=== PATIENT | female | born 1960 | race African-American/Black ===

== ENCOUNTER 2017-04-27 08:29 | Emergency (ER) | payer OTHER ==
[2017-04-27 09:04] LABS: #Eosinphils 0.1 thou/uL (0.0-0.7); #Lymphocytes 2.2 thou/uL (1.20-3.40); #Monocytes 0.6 thou/uL (0.11-0.59); #Neutrophils 2.2 thou/uL (1.40-6.50); %Basophils 0.2 % (0.0-1.0); %Eosinophils 2.1 % (0.0-10.0); %Lymphocytes 43.2 % (21.0-51.0); %Monocytes 11.1 % (0.0-10.0); %Neutrophils 43.5 % (42.0-75.0); Hemoglobin 15.1 g/dL (12.0-16.0); Mean Corpuscular HGB CONC 32.7 g/dL (32.0-36.0); Mean Corpuscular Volume 94.8 fl (81.0-99.0); Mean Platelet Volume 7.8 fL (7.4-10.4); Platelet Count 262 thou/uL (130-400); RBC Distribution Width 12.4 % (11.5-14.5); Red Blood Cell (RBC) Count 4.88 mill/uL (4.20-5.40)
[2017-04-27] MEDS ORDERED: Ketorolac Tromethamine 30 MG/ML VIAL ONE (09:15)
[2017-04-27 09:29] LABS: CKMB 2.7 ng/mL (0-6.6); Troponin I Less than 0.010 ng/mL (< 0.028)
--- NOTE | 2017-04-27 09:50 | RAD ---
PORTABLE CHEST: Date: 04/27/17 PROVIDED CLINICAL HISTORY: Chest pain. FINDINGS: Comparison with 11/08/16. Evaluation is limited by patient body habitus. Cardiac silhouette appears enlarged, which may be at least partially on the basis of portable techniq ue. No focal consolidation, pleural fluid, or pneumothorax apparent. IMPRESSION: No evidence for an acute cardiopulmonary process. If there is persistent clinical concern, follow-up PA and lateral views of the chest are recommended. POS: [facility]
[2017-04-27 10:08] LABS: Albumin 3.6 g/dL (3.5-5.0)
[2017-04-27 10:09] LABS: Chloride 110 mmol/L (98-107); Potassium 4.2 mmol/L (3.5-5.1); Sodium 139 mmol/L (136-145)
[2017-04-27 10:10] LABS: Calcium 9.1 mg/dL (7.8-10.44)
[2017-04-27 10:11] LABS: Glucose 127 mg/dL (70-105); Protein, Total 6.6 g/dL (6.0-8.3)
[2017-04-27 10:12] LABS: Anion Gap 10 mmol/L (10-20); Bilirubin, Total 0.3 mg/dL (0.2-1.2); Carbon Dioxide 23 mmol/L (22-29)
[2017-04-27 10:13] LABS: Alkaline Phosphatase 80 U/L (40-150)
[2017-04-27 10:14] LABS: Calc. Creatinine Clearance 0 mL/min (70-130); Estimated GFR-MDRD 86
[2017-04-27 10:15] LABS: BUN (Urea Nitrogen) 8 mg/dL (9.8-20.1)
[2017-04-27 10:16] LABS: AST (SGOT) 15 U/L (5-34)
[2017-04-27 10:17] LABS: ALT (SGPT) 20 U/L (8-55); CK (CPK) 134 U/L (29-168)
[2017-04-27] MEDS ORDERED: Acetaminophen 500 MG TAB ONE (12:22)
[2017-04-27 12:38] LABS: Troponin I Less than 0.010 ng/mL (< 0.028)
--- NOTE | 2017-04-29 17:35 | EKG ---
Test Reason : CP Blood Pressure : / mmHG Vent. Rate : 076 BPM Atrial Rate : 076 BPM P-R Int : 144 ms QRS Dur : 068 ms QT Int : 376 ms P-R-T Axes : 042 060 030 degrees QTc Int : 423 ms Normal sinus rhythm Normal ECG Confirmed by KOBE STREET MD ([id number]), cable placer CARRIE TRAORE ([id number]) on 04/29/2017 5:33:50 PM Referred By: Confirmed By:KOBE STREET MD
== END 2017-04-27 13:16 | disposition home or self-care (01) ==
LOC: ERS 08:29
DX: R07.89 Other chest pain (principal); G43.909 Migraine, unspecified, not intractable, without status migrainosus; Z79.899 Other long term (current) drug therapy
CPT/HCPCS: 36415; 71045; 80053; 82550; 82553; 83880; 84484; 85025; 93005; 96374; J1885

== ENCOUNTER 2017-05-27 23:14 | Emergency (ER) | payer OTHER ==
[2017-05-27] MEDS ORDERED: Ketorolac Tromethamine 30 MG/ML VIAL ONE (23:49)
[2017-05-28] LABS: #Eosinphils 0.2 thou/uL (0.0-0.7); #Lymphocytes 2.6 thou/uL (1.20-3.40); #Monocytes 0.7 thou/uL (0.11-0.59); #Neutrophils 3.6 thou/uL (1.40-6.50); %Basophils 0.2 % (0.0-1.0); %Lymphocytes 36.9 % (21.0-51.0); %Monocytes 9.5 % (0.0-10.0); %Neutrophils 50.5 % (42.0-75.0); Hemoglobin 14.4 g/dL (12.0-16.0); Mean Corpuscular HGB CONC 33.6 g/dL (32.0-36.0); Mean Corpuscular Hemoglobin 31.4 pg (27.0-31.0); Mean Corpuscular Volume 93.3 fl (81.0-99.0); Mean Platelet Volume 7.1 fL (7.4-10.4); Platelet Count 253 thou/uL (130-400); RBC Distribution Width 12.1 % (11.5-14.5); Red Blood Cell (RBC) Count 4.59 mill/uL (4.20-5.40); White Blood Cell (WBC) Count 7.1 thou/uL (4.8-10.8)
[2017-05-28 00:02] LABS: Bilirubin Negative (Negative); Blood, Urine Small (Negative); Clarity CLEAR (Clear); Glucose, Urine (Dipstick) Negative (Negative); Leukocyte Negative (Negative); Nitrite Negative (Negative); Protein, Urine (Dipstick) Negative (Neg-Trace); Specific Gravity, Urine 1.011 (1.002-1.036); pH, Urine 5.5 (5.0-9.0)
[2017-05-28 00:04] LABS: Bacteria/HPF None Seen HPF (None Seen); Hyaline Casts/LPF 0-3 HYALINE CAST LPF (0-3 Hyaline); Pathc Cast-AUWi Flag 0.43 (0-2.49); RBC/HPF 0-3 HPF (0-3); Squamous Epithelial 0-3 HPF (0-3); WBC/HPF 0-3 HPF (0-3)
[2017-05-28 00:28] LABS: ALT (SGPT) 15 U/L (8-55); AST (SGOT) 17 U/L (5-34); Albumin 3.9 g/dL (3.5-5.0); Alkaline Phosphatase 98 U/L (40-150); Anion Gap 14 mmol/L (10-20); BUN (Urea Nitrogen) 9 mg/dL (9.8-20.1); Bilirubin, Total 0.2 mg/dL (0.2-1.2); Calc. Creatinine Clearance 0 mL/min (70-130); Calcium 9.4 mg/dL (7.8-10.44); Carbon Dioxide 24 mmol/L (22-29); Chloride 107 mmol/L (98-107); Estimated GFR-MDRD 69; Globulin 3.5 g/dL (2.4-3.5); Glucose 132 mg/dL (70-105); Lipase 12 U/L (8-78); Potassium 3.6 mmol/L (3.5-5.1); Protein, Total 7.4 g/dL (6.0-8.3); Sodium 141 mmol/L (136-145)
--- NOTE | 2017-05-28 11:19 | CT ---
PRELIMINARY REPORT/[facility]/EMERGENCY AFTER HOURS PROCEDURE: EXAM: CT Abdomen and Pelvis Without Intravenous Contrast EXAM DATE/TIME: Exam ordered 05/28/2017 12:03 AM CLINICAL HISTORY: 57 years old, female; Pain; Abdominal pain; Flank; Left; Patient HX: L flank pain x 1 wk TECHNIQUE: Axial computed tomography images of the abdomen and pelvis without intravenous contrast. Coronal reformatted images were created and reviewed. COMPARISON: No relevant prior studies available. FINDINGS: Lung bases: Unremarkable. No mass. No consolidation. ABDOMEN: Liver: Unremarkable. Gallbladder and bile ducts: Unremarkable. No calcified stones. No ductal dilation. Pancreas: Unremarkable. No ductal dilation. Spleen: Unremarkable. No splenomegaly. Adrenals: Unremarkable. No mass. Kidneys and ureters: Unremarkable. No obstructing stones. No hydronephrosis. Stomach and bowel: Unremarkable. No obstruction. No mucosal thickening. Appendix: Normal appendix. PELVIS: Bladder: Unremarkable. No stones. Reproductive: Prior hysterectomy. ABDOMEN and PELVIS: Intraperitoneal space: Unremarkable. No free air. No significant fluid collection. Bones/joints: No acute fracture. No dislocation. Soft tissues: Unremarkable. Vasculature: Unremarkable. No abdominal aortic aneurysm. Lymph nodes: Unremarkable. No enlarged lymph nodes. IMPRESSION: No acute findings. Thank you for allowing us to participate in the care of your patient. Dictated and Authenticated by: Remberto Decker MD 05/28/2017 12:17 AM Central Time ([place] & [place]) FINAL REPORT CT ABDOMEN AND PELVIS NONCONTRAST PERFORMED ON AN EMERGENCY BASIS: Date: 05/28/17 Time: 0004 hours HISTORY: Left flank pain. FINDINGS: Findings agree with the preliminary report by Theodora. There is no CT evidence of urinary tract obstruct ion or calcification. Lack of contrast limits evaluation for other abnormalities. POS: [facility]
== END 2017-05-28 02:20 | disposition home or self-care (01) ==
LOC: ERS 23:14
DX: Z79.899 Other long term (current) drug therapy; M62.830 Muscle spasm of back; G43.909 Migraine, unspecified, not intractable, without status migrainosus
CPT/HCPCS: 74176; 80053; 81003; 81015; 83690; 85025; 96374; J1885

== ENCOUNTER 2017-06-23 10:50 | Day surgery (SDC) | payer OTHER ==
[2017-06-22 12:35] VITALS: BMI 27.4
[2017-06-23 11:33] LABS: #Eosinphils 0.1 thou/uL (0.0-0.7); #Lymphocytes 2.6 thou/uL (1.20-3.40); #Monocytes 0.5 thou/uL (0.11-0.59); #Neutrophils 2.4 thou/uL (1.40-6.50); %Basophils 0.3 % (0.0-1.0); %Eosinophils 1.9 % (0.0-10.0); %Lymphocytes 45.6 % (21.0-51.0); %Monocytes 9.2 % (0.0-10.0); Hemoglobin 15.2 g/dL (12.0-16.0); Mean Corpuscular HGB CONC 33.3 g/dL (32.0-36.0); Mean Corpuscular Volume 92.9 fl (81.0-99.0); Mean Platelet Volume 7.3 fL (7.4-10.4); Platelet Count 258 thou/uL (130-400); Red Blood Cell (RBC) Count 4.92 mill/uL (4.20-5.40); White Blood Cell (WBC) Count 5.6 thou/uL (4.8-10.8)
[2017-06-23 11:36] LABS: INR-International Normal Ratio 0.9; PTT 29.3 SEC (22.9-36.1); Prothrombin Time 12.6 SEC (12.0-14.7)
[2017-06-23] MEDS ORDERED: Sodium Chloride 0.9% 10 ML ONE (11:37)
[2017-06-23] MEDS ORDERED: Thrombin 5000 UNITS/5 ML VIAL ONE (11:37)
[2017-06-23 11:46] LABS: Anion Gap 11 mmol/L (10-20); BUN (Urea Nitrogen) 10 mg/dL (9.8-20.1); Calc. Creatinine Clearance 79 mL/min (70-130); Calcium 9.4 mg/dL (7.8-10.44); Carbon Dioxide 24 mmol/L (22-29); Chloride 110 mmol/L (98-107); Estimated GFR-MDRD 77; Glucose 96 mg/dL (70-105); Sodium 141 mmol/L (136-145)
[2017-06-23] MEDS ORDERED: Fentanyl 250 MCG/5 ML VIAL ONE (11:47)
[2017-06-23] MEDS ORDERED: CEFAZOLIN/Water 2 GM/20 ML SYRINGE ONE (11:51)
[2017-06-23] MEDS ORDERED: Midazolam HCl 2 mg/2 ml Vial ONE (11:58)
[2017-06-23] MEDS ORDERED: HYDROmorphone 2 MG/ML VIAL SLOW IVP PRN (14:35)
[2017-06-23] MEDS ORDERED: Ondansetron HCl/PF 4 MG/2 ML Vial IVP PRN (14:35)
[2017-06-23] MEDS ORDERED: Promethazine HCl 25 MG/ML VIAL IM PRN ×2 (14:35→14:38)
[2017-06-23] MEDS ORDERED: Promethazine HCl 25 MG/ML VIAL SLOW IVP PRN (14:35)
[2017-06-23] MEDS ORDERED: Acetaminophen 325 MG TAB PO PRN (14:38)
[2017-06-23] MEDS ORDERED: Fleet Enema 133 ML BOT PR PRN (14:38)
[2017-06-23] MEDS ORDERED: tiZANidine HCl 4 MG TAB PO PRN (14:38)
[2017-06-23] MEDS ORDERED: Morphine 4 MG/ML VIAL SLOW IVP PRN (14:38)
[2017-06-23] MEDS ORDERED: traMADol HCl 50 MG TAB PO PRN (14:38)
[2017-06-23] MEDS ORDERED: HYDROcodone/Acetaminophen 7.5/325 mg Tablet PO PRN (14:38)
[2017-06-23] MEDS ORDERED: Milk Of Magnesia 30 ML UDCUP PO PRN (14:38)
[2017-06-23] MEDS ORDERED: Acetaminophen/Codeine 30-300mg Tablet PO PRN (14:38)
[2017-06-23] MEDS ORDERED: Mag-Al 1200 mg/1200 mg/30 ML UDCUP PO PRN (14:38)
[2017-06-23] MEDS ORDERED: Bisacodyl 10 MG SUPP PR PRN (14:38)
[2017-06-23] MEDS ORDERED: Furosemide 20 MG TAB PO PRN (14:40)
[2017-06-23] MEDS ORDERED: Topiramate 25 MG TAB PO PRN (14:40)
[2017-06-23] MEDS ORDERED: Metoprolol Tartrate 50 MG TAB PO PRN (14:40)
[2017-06-23] MEDS ORDERED: Fentanyl 100 MCG/2 ML VIAL ONE (14:41)
[2017-06-23] MEDS ORDERED: PROPOFOL 200 MG/20 ML VIAL ONE (19:30)
[2017-06-23] MEDS ORDERED: PHENYLEPHRINE-NS 100 MCG/ML 10 ML SYRINGE ONE (19:30)
[2017-06-23] MEDS ORDERED: Dexamethasone 20 MG/5 ML VIAL ONE (19:30)
[2017-06-23] MEDS ORDERED: diphenhydrAMINE 50 MG/ML VIAL ONE (19:30)
[2017-06-23] MEDS ORDERED: Glycopyrrolate 0.2 MG/ML 5 ML SYRINGE ONE (19:30)
[2017-06-23] MEDS ORDERED: Lidocaine 1% PF 5 ML VIAL ONE (19:30)
[2017-06-23] MEDS: CEFAZOLIN/Water 2 GM/20 ML SYRINGE SLOW IVP SCH (19:51)
--- NOTE | 2017-06-24 01:39 | OP ---
DATE OF SURGERY: 06/23/2017 OR: 11. WOUND TYPE: Type 1 wound. SURGEON: Urbano Harris M.D. GROUND WOOD SUPERVISOR: Mamadou Swann PA-C. PREPROCEDURE DIAGNOSES: C5-C6 disk extrusion with neck and left arm pain and C6 radiculopathy. POSTPROCEDURE DIAGNOSES: C5-C6 disk extrusion with neck and left arm pain and C6 radiculopathy. PROCEDURES: 1. Anterior C5-C6 diskectomy for decompression of spinal cord and C6 nerve roots. 2. Preparation of endplates for placement of interbody spacer packed with local bone autograft, obta ined from same incision, allograft, C5-C6 for arthrodesis fusion. 3. Anterior cervical plate and screw fixation, C5-C6. 4. Use of operative microscope for microdissection. DESCRIPTION OF PROCEDURE: After informed consent was obtained from the patient, the patient brought to OR. Proper patient pause and identification was carried out. She was placed in excellent general endotracheal anesthesia, positioned supine on the OR table. All appropriate points were padded. We identified oblique augie in the right anterior neck using fluoroscopy and anatomic landmarks that wou ld allow for approach to the C5-C6 segment. This region was sterilely cleansed, prepared, and draped . Proper patient pause and identification was carried out. The wound was then opened with a combina tion of sharp, monopolar and blunt dissection. We proceeded lateral to the tracheoesophageal bundle medial to the right carotid sheath. We identified the prevertebral layer of deep cervical fascia and the longus colli muscles were swept laterally. Retraction placed following localization film. We t hen performed distraction at the C5-C6 segment to allow for diskectomy, this was performed and operat manuel microscope was brought in for microdissection to do this. We obtained an excellent decompression spinal cord and the C6 nerve roots and assured freedom of both. There was no spinal fluid leak. Th e endplates were prepared. An interbody spacer of appropriate dimension was then placed and the dist raction was released. The microscope was removed. Hemostasis was maximized throughout. A plate of appropriate dimension was then affixed to the cervical spine at C5-C6 and final tightening occurred, I was satisfied with our construct both with gross visualization and fluoroscopic visualization. The wound was copiously irrigated throughout and closed in anatomic layers over a drain. The patient th en emerged from anesthesia.
[2017-06-24] MEDS: Sodium Chloride 0.9% 1,000 ML IV SCH ×2 (02:39→03:49)
[2017-06-24] MEDS: CEFAZOLIN/Water 2 GM/20 ML SYRINGE SLOW IVP SCH ×2 (03:49→11:13)
--- NOTE | 2017-06-24 14:56 | PRG ---
DATE OF SERVICE: 06/24/2017 Ms. Hernandez is postoperative day 1 from C5-6 ACDF. Her left neck and left arm pain have resolved. She has, as expected, surgical pain. Drain output is minimal; we will remove her drain. Her wound is h ealing well. Her strength is good in her extremities. We went over her interim postoperative issues and she will be dismissed today.
[2017-06-24 16:18] VITALS: BP 171/103; TEMP 98.3
== END 2017-06-24 16:15 | disposition home or self-care (01) ==
LOC: SDC 10:50 → SJJU 15:45 → SDC 06-24 16:15
PROVIDERS: ATTEND Surgery
PROC: 0RG1070 Fusion of Cervical Vertebral Joint with Autologous Tissue Substitute, Anterior Approach, Anterior Column, Open Approach (ICD-10-PCS; principal; 2017-06-24)
PROC: 0RB30ZZ Excision of Cervical Vertebral Disc, Open Approach (ICD-10-PCS; principal; 2017-06-24)
DX: M50.122 Cervical disc disorder at C5-C6 level with radiculopathy (principal); G43.909 Migraine, unspecified, not intractable, without status migrainosus; Z79.82 Long term (current) use of aspirin; Z79.899 Other long term (current) drug therapy; Z88.5 Allergy status to narcotic agent
CPT/HCPCS: 36415; 76001; 80048; 85025; 85610; 85730; 96374; A4216; C1713; C1776; J1100; J1200; J2001; J2250; J2270; J2704; J3010; J3490

== ENCOUNTER 2017-08-04 14:06 | Outpatient (CLI) | payer OTHER ==
--- NOTE | 2017-08-04 15:36 | RAD ---
FOUR VIEWS OF THE CERVICAL SPINE: INDICATION: Radiculopathy. COMPARISON: Prior exam dated 03/07/09. FINDINGS: Since the comparison examination, there has been interval placement of ACDF spanning C5-6. The ACDF plate and screw construct projects in the expected position. There is an intervertebral cage at C5-6 that projects in the expected position. Spinal alignment preserved. Mild multilevel degenerative d isk disease is present. Lateral masses are symmetric. Lung apices are clear. IMPRESSION: Postoperative cervical spine. POS: [facility]
== END 2017-08-04 14:07 | disposition home or self-care (01) ==
LOC: TBSIIMAG 14:06
PROVIDERS: ATTEND Surgery
DX: M54.12 Radiculopathy, cervical region (principal); Z98.890 Other specified postprocedural states
CPT/HCPCS: 72040

== ENCOUNTER 2017-10-21 16:35 | Emergency (ER) | payer OTHER ==
[2017-10-21 17:12] LABS: Bilirubin Negative (Negative); Blood, Urine Small (Negative); Clarity CLEAR (Clear); Glucose, Urine (Dipstick) Negative (Negative); Leukocyte Negative (Negative); Nitrite Negative (Negative); Protein, Urine (Dipstick) Negative (Neg-Trace); Specific Gravity, Urine 1.026 (1.002-1.036); Urobilinogen 0.2 mg/dL (0.2-1.0); pH, Urine 5.5 (5.0-9.0)
[2017-10-21 17:14] LABS: Bacteria/HPF None Seen HPF (None Seen); Hyaline Casts/LPF 4-6 HYALINE CAST LPF (0-3 Hyaline); Pathc Cast-AUWi Flag 1.01 (0-2.49); WBC/HPF 0-3 HPF (0-3)
[2017-10-21 17:36] LABS: CKMB 2.6 ng/mL (0-6.6); Troponin I Less than 0.010 ng/mL (< 0.028)
[2017-10-21] MEDS ORDERED: Ketorolac Tromethamine 30 MG/ML VIAL ONE (18:37)
[2017-10-21 19:17] LABS: #Eosinphils 0.1 thou/uL (0.0-0.7); #Lymphocytes 2.7 thou/uL (1.20-3.40); #Monocytes 0.5 thou/uL (0.11-0.59); #Neutrophils 2.7 thou/uL (1.40-6.50); %Basophils 0.6 % (0.0-1.0); %Eosinophils 2.3 % (0.0-10.0); %Lymphocytes 44.2 % (21.0-51.0); %Neutrophils 44.9 % (42.0-75.0); Hemoglobin 14.1 g/dL (12.0-16.0); Mean Corpuscular HGB CONC 32.9 g/dL (32.0-36.0); Mean Corpuscular Hemoglobin 30.9 pg (27.0-31.0); Mean Corpuscular Volume 93.9 fL (78.0-98.0); Mean Platelet Volume 7.8 fL (7.4-10.4); Platelet Count 233 thou/uL (130-400); Red Blood Cell (RBC) Count 4.56 mill/uL (4.20-5.40)
[2017-10-21 19:26] LABS: Anion Gap 12 mmol/L (10-20); BUN (Urea Nitrogen) 9 mg/dL (9.8-20.1); Calc. Creatinine Clearance 0 mL/min (70-130); Calcium 9.3 mg/dL (7.8-10.44); Carbon Dioxide 20 mmol/L (22-29); Chloride 110 mmol/L (98-107); Estimated GFR-MDRD 80; Glucose 142 mg/dL (70-105); Sodium 138 mmol/L (136-145)
--- NOTE | 2017-10-21 19:32 | CT ---
CT ABDOMEN NONCONTRAST CT PELVIS NONCONTRAST: (urolithiasis protocol) 10/21/17 HISTORY: 57-year-old female with left flank pain. TECHNIQUE: IV injection of iodinated contrast media: none Oral contrast media: none FINDINGS: Other than for urolithiasis, the lack of IV and oral contrast limits the evaluation. Liver: No contour abnormalities. Spleen: No splenomegaly. Pancreas: No contour abnormalities. Adrenals: No mass. Kidneys: No nephrolithiasis or overt hydronephrosis. Ureters: No calculi. Bladder: No calculi. Abdominal aorta: No aneurysm. Small bowel: No dilation. Colon: No adjacent fat stranding. Appendix: No dilation or adjacent fat stranding. Free air: None. Free fluid: None. IMPRESSION: No acute findings. ai [] POS: [facility]
== END 2017-10-21 20:02 | disposition home or self-care (01) ==
LOC: ERS 16:35
DX: R10.9 Unspecified abdominal pain (principal); R31.9 Hematuria, unspecified; G43.909 Migraine, unspecified, not intractable, without status migrainosus; Z79.899 Other long term (current) drug therapy
CPT/HCPCS: 36415; 74176; 80048; 81003; 81015; 82553; 84484; 85025; 96372; J1885